=== PATIENT | male | born 1995 | race Caucasian/White ===

== ENCOUNTER 2025-01-09 15:32 | Emergency (ER) | payer SELFPAY ==
[2025-01-09] MEDS ORDERED: Acetaminophen/oxyCODONE 325-5 MG Tab PO ONE (15:33)
[2025-01-09] MEDS ORDERED: Sodium Chloride 0.9% 10 ML Syringe FLUSH PRN (15:42)
[2025-01-09] MEDS: Ketorolac 30 MG/ML SDV IVPUSH ONE (16:00)
[2025-01-09 16:13] LABS: BASOPHILS ABSOLUTE AUTO 0.0 x10-3/uL (0.0-0.3); BASOPHILS PERCENT AUTO 0.1 % (0.3-3.8); EOSINOPHILS ABSOLUTE AUTO 0.1 x10-3/uL (0.0-0.6); EOSINOPHILS PERCENT AUTO 0.4 % (0.1-6.8); LYMPHOCYTES ABSOLUTE AUTO 1.8 x10-3/uL (0.5-4.5); LYMPHOCYTES PERCENT AUTO 14.0 % (15.8-45.3); MEAN PLATELET VOLUME 8.6 fL (6.7-11.0); MONOCYTES ABSOLUTE AUTO 0.9 x10-3/uL (0.0-1.2); MONOCYTES PERCENT AUTO 7.0 % (5.5-15.2); NEUTROPHILS ABSOLUTE AUTO 10.3 x10-3/uL (1.7-6.9); NEUTROPHILS PERCENT AUTO 78.5 % (40.3-71.8); PLATELET COUNT,PLT 219 x10(3)uL (117-477); RED BLOOD CELL COUNT 4.67 x10(6)uL (3.90-5.90); RED CELL DISTRIBUTION WIDTH 13.0 % (12.4-15.0); WHITE BLOOD CELL COUNT,WBC 13.1 x10-3/uL (3.2-10.1)
[2025-01-09 16:20] LABS: BLOOD UREA NITROGEN,BUN 14 mg/dL (7-18); CARBON DIOXIDE,CO2 30 mmol/L (21-32); CHLORIDE,CL 108 mmol/L (100-110); CREATININE 1.1 mg/dL (0.70-1.30); ESTIMATED GFR 92 mL/min (>60); GLUCOSE RANDOM 86 mg/dL (80-116); POTASSIUM,K 3.6 mmol/L (3.5-5.3); SODIUM,NA 146 mmol/L (135-145)
[2025-01-09 16:51] LABS: GLUCOSE,URINE NORMAL (NORMAL); OCCULT BLOOD,URINE LARGE (NEGATIVE)
[2025-01-09 16:57] LABS: APPEARANCE,URINE CLEAR (CLEAR)
[2025-01-09 16:59] LABS: SQUAMOUS EPITHELIAL CELLS,UR RARE (NS,R,O)
== END 2025-01-09 19:52 | disposition home or self-care (01) ==
LOC: FB.ED 15:32
DX: N13.2 Hydronephrosis with renal and ureteral calculous obstruction (principal); Z79.899 Other long term (current) drug therapy
CPT/HCPCS: 36415; 74176; 80048; 81001; 85025; 96374; 96375; 99284; A9270; J1885; J2270